=== PATIENT | female | born 1950 | race Caucasian/White ===

== ENCOUNTER 2016-09-02 14:26 | Emergency (ER) | payer MEDICARE ==
[2016-09-02] MEDS ORDERED: FAMOTIDINE IV 20 MG/2 ML VIAL IVP ONE (14:37)
[2016-09-02] MEDS ORDERED: METHYLPREDNISOLONE PF 125MG/VIAL IVP ONE (14:37)
[2016-09-02] MEDS ORDERED: DIPHENHYDRAMINE HCL IV 50 MG/ML VIAL IVP ONE (14:37)
--- NOTE | 2016-09-02 14:42 | Emergency Department Record ---
History of Present Illness - General Chief complaint: Bite Insect/other Stated complaint: BEE STING ALLERGIC Time Seen by Provider: 09/02/16 14:37 Source: Patient Mode of Arrival: Ambulatory Limitations: No limitations - History of Present Illness Initial comments: 66 yo female presents to ED for evaluation following a bee sting that occurred 30 minutes prior to arrival. Patient reports mild "scratchy" throat, denies difficulty breathing or hives. Patient reports similar symptoms 1 year ago, was given an Epi pen but does not know how to use it. MD complaint: Insect bite/sting Onset/Timin -: Minutes(s) Hx Tetanus Toxoid Vaccination: Yes Year of Tetanus Vaccination: unknown Location: Generalized Severity: Mild Consistency: Constant Improves with: None Worsens with: None Context: Witnessed insect bite Associated symptoms: Other ("scratchy throat") - Related Data Home Medications Medication Instructions Recorded Confirmed Last Taken Atorvastatin Calcium [Lipitor] 20 mg PO QHS 01/01/15 09/02/16 06/01/15 Lisinopril 20 mg PO DAILY 01/01/15 09/02/16 06/01/15 20:00 Omeprazole [Prilosec] 20 mg PO DAILY 01/01/15 09/02/16 06/01/15 Loratadine [Allergy Relief] 10 mg PO DAILY 06/01/15 09/02/16 06/01/15 Naproxen Sodium [Naprelan] 500 mg PO BID 06/01/15 09/02/16 06/01/15 Albuterol Sulfate [Proventil Hfa] 1 - 2 puff INH .EVERY 4-6 HOURS PRN 06/02/15 09/02/16 Unknown Mometasone Furoate [Asmanex] 220 mcg IH DAILY 06/02/15 09/02/16 05/31/15 08:00 Previous Rx's Medication Instructions Recorded Prednisone [Prednisone 20Mg] 20 mg PO BID #14 tab 01/01/15 Meclizine HCl [Antivert] 25 mg PO Q8H PRN #30 tablet 06/03/15 Ondansetron [Zofran Odt] 4 mg SL Q8H PRN #20 tab.rapdis 06/03/15 Famotidine [Pepcid] 40 mg PO DAILY #15 tablet 09/02/16 Prednisone [Prednisone 20Mg] 20 mg PO TID #12 tab 09/02/16 Allergies Allergy/AdvReac Type Severity Reaction Status Date / Time bee venom protein (honey bee) Allergy Severe SWELLING Verified 09/02/16 14:41 (GENERAL) codeine AdvReac Intermediate VOMITING Verified 09/02/16 14:40 Review of Systems Constitutional: Denies: Chills, Fever, Malaise, Night sweats Eyes: Denies: Eye discharge, Eye pain ENT: Reports: Throat pain. Denies: Congestion, Ear pain, Epistaxis Respiratory: Denies: Cough, Dyspnea Cardiovascular: Denies: Chest pain, Dyspnea on exertion Endocrine: Denies: Fatigue, Heat or cold intolerance Gastrointestinal: Denies: Abdominal pain, Nausea, Vomiting Genitourinary: Denies: Incontinence, Retention Musculoskeletal: Denies: Arthralgia, Back pain, Gout, Joint swelling Skin: Denies: Bruising, Change in color Neurological: Denies: Abnormal gait, Confusion, Headache, Seizure Psychiatric: Denies: Anxiety Hematological/Lymphatic: Denies: Anemia, Blood Clots Past Medical History - SOCIAL HISTORY Smoking Status: Never smoker - RESPIRATORY Hx Respiratory Disorders: Yes Comment:: Allergies - CARDIOVASCULAR Hx Cardio Disorders: Yes Hx Hypertension: Yes - NEURO Hx Neuro Disorders: No - GI Hx GI Disorders: No - Hx Genitourinary Disorders: No - ENDOCRINE Hx Endocrine Disorders: No - MUSCULOSKELETAL Hx Musculoskeletal Disorders: Yes Hx Arthritis: Yes (Spinal) - PSYCH Hx Psych Problems: No - HEMATOLOGY/ONCOLOGY Hx Hematology/Oncology Disorders: No Family Medical History Hx Alcohol Use: Father, Mother Hx Dementia: Mother Hx Diabetes: Mother, Grandparents Hx HTN: Mother, Brother/Sister Hx Liver Disease: Brother/Sister Hx Resp Disorders: Brother/Sister Physical Exam - General General Appearance: Alert, Oriented x3, Cooperative Limitations: No limitations - Head Head exam: Atraumatic, Normocephalic, Normal inspection Head exam detail: negative: Abrasion, Contusion, Stafford's sign, General tenderness, Hematoma, Laceration - Eye Eye exam: Normal appearance. negative: Conjunctival injection, Periorbital swelling, Periorbital tenderness, Scleral icterus - ENT Ear exam: negative: Auricular hematoma, Auricular trauma Nasal Exam: negative: Active bleeding, Discharge, Dried blood, Foreign body Mouth exam: negative: Drooling, Laceration, Muffled voice, Tongue elevation Throat exam: Other (Normal uvula). negative: Tonsillar erythema, Tonsillomegaly , Tonsillar exudate, R peritonsillar mass - Neck Neck exam: Normal inspection. negative: Meningismus, Tenderness - Respiratory Respiratory exam: Normal lung sounds bilaterally. negative: Rales, Respiratory distress - Cardiovascular Cardiovascular Exam: Regular rate, Normal rhythm, Normal heart sounds - GI/Abdominal GI/Abdominal exam: Soft. negative: Rebound, Rigid, Tenderness - Rectal Rectal exam: Deferred - exam: Deferred - Extremities Extremities exam: Normal inspection. negative: Calf tenderness, Pedal edema, Tenderness - Back Back exam: Denies: CVA tenderness (R), CVA tenderness (L) - Neurological Neurological exam: Alert, Normal gait, Oriented X3 - Psychiatric Psychiatric exam: Normal affect, Normal mood - Skin Skin exam: Normal color. negative: Abrasion Type of lesion: negative: abrasion Course - Reevaluation(s) Reevaluation #1: 09/02/16 15:12 Patient re-evaluated, reports that her symptoms are improving. Will continue to observe. Reevaluation #2: 09/02/16 16:26 Patient reports that she is feeling much better, reports improvement in her voice symptoms, denies shortness of breath or rash symptoms. Patient appears stable for discharge at this time on Pepcid and Prednisone for recurrent symptoms. Disposition Disposition: Discharge Clinical Impression: Local reaction to bee sting Qualifiers: Encounter type: initial encounter Injury intent: accidental or unintentional Qualified Code(s): T63.441A - Toxic effect of venom of bees, accidental ( unintentional), initial encounter Disposition: Home, Self-Care Condition: (2) Stable Instructions: Insect Bite or Sting (ED) Additional Instructions: Return to ED if your symptoms worsen or if you have any concerns. Prednisone and Pepcid as directed. Follow-up with your family doctor in 3-5 days as directed. Prescriptions: Famotidine [Pepcid] 40 mg PO DAILY #15 tablet Prednisone [Prednisone 20Mg] 20 mg PO TID #12 tab Forms: Patient Portal Access Time of Disposition: 16:27
== END 2016-09-02 16:45 | disposition home or self-care (01) ==
LOC: ER 14:26
DX: T63.441A Toxic effect of venom of bees, accidental (unintentional), initial encounter (principal); R09.89 Other specified symptoms and signs involving the circulatory and respiratory systems
CPT/HCPCS: 96374; 96375; 99284; J1200; J2930; J3490

== ENCOUNTER 2018-07-15 16:30 | Emergency (ER) | payer MEDICARE ==
[2018-07-15] MEDS ORDERED: METHYLPREDNISOLONE PF 125MG/VIAL IVP ONE (16:39)
[2018-07-15] MEDS ORDERED: DIPHENHYDRAMINE HCL 50 MG/ML VIAL IVP ONE (16:39)
--- NOTE | 2018-07-15 16:46 | Emergency Department Record ---
History of Present Illness - General Chief complaint: Bite Insect/other Stated complaint: BEE STING Time Seen by Provider: 07/15/18 16:35 Source: Patient Mode of Arrival: Ambulatory Limitations: No limitations - History of Present Illness Initial comments: The patient is here due to having a possible reaction to a bee sting. She was stung on the L 3rd finger about 10 minutes prior to presenting to the ER. The patient does have a hx of possibly being allergic to bee stings. Her reaction is that she gets a hoarse voice and swelling behind her ears. The patient presently is mildly intermittently hoarse but is having no YADIRA, SOB, skin rash or itching, trouble swallowing or swelling at the bee sting site. The patient's states she gets hoarse a lot. MD complaint: Insect bite/sting, Other Onset/Timin -: Minutes(s) Hx Tetanus Toxoid Vaccination: Yes Year of Tetanus Vaccination: unknown Improves with: None Worsens with: None Context: None Associated symptoms: Denies other symptoms Treatments Prior to Arrival: None - Related Data Previous Rx's Medication Instructions Recorded Famotidine [Pepcid] 40 mg PO DAILY #15 tablet 09/02/16 Prednisone [Prednisone 20Mg] 40 mg PO DAILY #8 tab 07/15/18 Allergies Allergy/AdvReac Type Severity Reaction Status Date / Time bee venom protein (honey bee) Allergy Severe SWELLING Verified 07/15/18 16:32 (GENERAL) codeine AdvReac Intermediate VOMITING Verified 07/15/18 16:32 Travel Screening - Travel/Exposure Within Last 30 Days Have you traveled within the last 30 days?: No Review of Systems Constitutional: Denies: Chills, Fever Eyes: Denies: Eye discharge ENT: Denies: Congestion Respiratory: Denies: Cough, Dyspnea Past Medical History - SOCIAL HISTORY Smoking Status: Never smoker - RESPIRATORY Hx Respiratory Disorders: Yes Comment:: Allergies - CARDIOVASCULAR Hx Cardio Disorders: Yes Hx Hypertension: Yes - NEURO Hx Neuro Disorders: No - GI Hx GI Disorders: Yes Hx Reflux: Yes (put on omeprazole) - Hx Genitourinary Disorders: No - ENDOCRINE Hx Endocrine Disorders: No - MUSCULOSKELETAL Hx Musculoskeletal Disorders: Yes Hx Arthritis: Yes (Spinal) - PSYCH Hx Psych Problems: No - HEMATOLOGY/ONCOLOGY Hx Hematology/Oncology Disorders: No Family Medical History Any Significant Family History?: Yes Hx Alcohol Use: Father, Mother Hx Dementia: Mother Hx Diabetes: Mother, Grandparents Hx HTN: Mother, Brother/Sister Hx Liver Disease: Brother/Sister Hx Resp Disorders: Brother/Sister Physical Exam - General General Appearance: Alert, Oriented x3, Cooperative, No acute distress (There presently are no signs of any allergic reaction.) - Eye Eye exam: Normal appearance, PERRL - ENT Mouth exam: Tongue normal. negative: Tongue elevation Throat exam: Normal inspection. negative: Tonsillar erythema, Tonsillomegaly, Tonsillar exudate, R peritonsillar mass, L peritonsillar mass - Neck Neck exam: Normal inspection, Full ROM. negative: Lymphadenopathy, Meningismus, Tenderness - Respiratory Respiratory exam: Normal lung sounds bilaterally. negative: Accessory muscle use, Respiratory distress, Rhonchi, Stridor, Wheezes - Cardiovascular Cardiovascular Exam: Regular rate, Normal rhythm, Normal heart sounds - GI/Abdominal GI/Abdominal exam: Soft, Normal bowel sounds. negative: Tenderness - Extremities Extremities exam: Normal inspection, Full ROM, Normal capillary refill. negative: Tenderness - Neurological Neurological exam: Alert, Normal gait. negative: Abnormal gait, Motor sensory deficit - Psychiatric Psychiatric exam: negative: Anxious - Skin Skin exam: Intact. negative: Petechiae, Rash, Urticaria, Vesicles Course Vital Signs 07/15/18 16:33 Temperature 99.0 F Pulse Rate 107 H Respiratory 20 Rate Blood Pressure 148/75 Pulse Ox 96 - Reevaluation(s) Reevaluation #1: The patient is doing very well at this time. She is mildly hoarse but is having no itching, no rash, swelling to her mouth or lips or any trouble breathing. 07/15/18 17:31 Reevaluation #2: The patient is doing a lot better at this time. She states her voice is back to normal and she is having no trouble swallowing or breathing. The patient has no rash or itching and her lungs are clear on exam. She appears very stable for discharge. 07/15/18 18:19 Disposition Disposition: Discharge Clinical Impression: Allergic reaction to bee sting Disposition: Home, Self-Care Condition: (2) Stable Instructions: Insect Bite or Sting (ED) Additional Instructions: Please take Benadryl 25 mg 3-4 times a day for 3 days and continue the Prednisone tomorrow. Please see your family doctor tomorrow for recheck if needed and return to the ER for any worsening allergic symptoms like any rash, trouble breathing, trouble swallowing, voice changes or itching. Prescriptions: Prednisone [Prednisone 20Mg] 40 mg PO DAILY #8 tab Forms: Patient Portal Access Time of Disposition: 18:21 Quality - Quality Measures Quality Measures: N/A - Blood Pressure Screening View Details: Yes Does Patient Have Any of the Following: No Blood Pressure Classification: Hypertensive Reading Systolic Measurement: 148 Diastolic Measurement: 75 Screening for High Blood Pressure: < First Hypertensive BP, F/U Documented > [[id number]] First Hypertensive Follow-up Interventions: Referral to alternative/primary care provider.
[2018-07-15] MEDS ORDERED: ALBUTEROL SULFATE (0.083%) 2.5 MG/3 ML NEB INH SCH (17:45)
== END 2018-07-15 18:40 | disposition home or self-care (01) ==
LOC: ER 16:30
DX: T63.441A Toxic effect of venom of bees, accidental (unintentional), initial encounter (principal); R49.0 Dysphonia; R22.0 Localized swelling, mass and lump, head; I10 Essential (primary) hypertension
CPT/HCPCS: 94640; 96374; 96375; 99284; J1200; J2930; J7613